=== PATIENT | female | born 1975 | race Caucasian/White ===

== ENCOUNTER 2022-03-30 04:18 | Day surgery (SDC) | payer BC, OTHER ==
[2022-03-25 16:46] VITALS: BMI 41.6
[2022-03-30] MEDS ORDERED: HEPARIN NA (PORCINE) 5,000 UNITS/ML 1ML VIAL ONE (10:04)
[2022-03-30] MEDS ORDERED: HYDROmorphone HCl 2 MG/ML VIAL ONE ×2 (10:23→10:28)
[2022-03-30] MEDS ORDERED: KETOROLAC TROMETHAMINE 30 MG/1 ML VIAL ONE (10:23)
[2022-03-30] MEDS ORDERED: FENTANYL CITRATE/PF 50 MCG/ML VIAL ONE ×5 (10:28→12:56)
[2022-03-30] MEDS ORDERED: SODIUM CHLORIDE 500 ML IV ONE (11:05)
[2022-03-30] MEDS ORDERED: MIDAZOLAM HCL 2 MG/2 ML SINGLE DOSE VIAL ONE ×3 (11:17→12:36)
[2022-03-30] MEDS ORDERED: MIDAZOLAM HCL 2 MG/2 ML SINGLE DOSE VIAL IVPUSH ONE ×6 (11:20→12:57)
[2022-03-30] MEDS ORDERED: KETOROLAC TROMETHAMINE 15 MG/ML VIAL IVPUSH ONE ×2 (12:15→14:15)
[2022-03-30] MEDS ORDERED: HYDROmorphone HCl 2 MG/ML VIAL IVPUSH ONE (13:15)
[2022-03-30] MEDS ORDERED: HYDROmorphone *PCA* 10MG/50ML DISP.SYRIN ONE ×2 (13:39→13:46)
[2022-03-30] MEDS ORDERED: HYDROmorphone *PCA* 10MG/50ML DISP.SYRIN PCA SCH (14:45)
[2022-03-30] MEDS: ONDANSETRON 4 MG/2 ML VIAL IVPUSH PRN ×2 (17:48→22:41)
[2022-03-30] MEDS ORDERED: ONDANSETRON 4 MG/2 ML VIAL ONE (18:07)
[2022-03-30] MEDS: SODIUM CHLORIDE 1,000 ML IV SCH (19:00)
[2022-03-31] MEDS: SODIUM CHLORIDE 1,000 ML IV SCH (01:37)
[2022-03-31] MEDS ORDERED: ACETAMINOPHEN 325 MG TABLET (FP) PO PRN (08:43)
[2022-03-31] MEDS ORDERED: oxyCODONE HCL 5 MG TABLET PO PRN (09:07)
[2022-03-31 09:26] LABS: BASO % 0.1 % (0-2.0); EOS % 0.2 % (0-4.5); HEMATOCRIT 31.9 % (32.4-45.2); HEMOGLOBIN 10.4 GM/dL (10.7-15.3); LYMPH % 9.4 % (8-40); MCH 24.9 pg (25.7-33.7); MCHC 32.6 g/dl (32.0-36.0); MEAN CELL VOLUME 76.4 fl (80-96); MEAN PLT VOLUME 7.9 fl (7.5-11.1); MONO % 5.1 % (3.8-10.2); NEUT % 85.2 % (42.8-82.8); PLATELET COUNT 342 10^3/uL (134-434); RBC 4.17 M/mm3 (3.60-5.2); RDW 16.4 % (11.6-15.6); WHITE BLOOD COUNT 10.2 K/mm3 (4.0-10.0)
[2022-03-31 10:07] LABS: BLOOD UREA NITROGEN 4.4 mg/dL (7-18); CALCIUM 8.4 mg/dL (8.5-10.1)
[2022-03-31 10:10] LABS: CREATININE 0.4 mg/dL (0.55-1.3)
[2022-03-31] MEDS ORDERED: IBUPROFEN 400 MG TABLET (FP) PO PRN (11:51)
[2022-03-31] MEDS ORDERED: BISACODYL 5 MG TABLET.DR (FP) PO PRN (11:51)
[2022-03-31] MEDS ORDERED: FAMOTIDINE 20 MG TABLET PO SCH (12:00)
[2022-03-31] MEDS: ONDANSETRON 4 MG/2 ML VIAL IVPUSH PRN (12:50)
[2022-03-31 15:02] VITALS: BP 117/54; PULSE 103; TEMP 98.1
== END 2022-03-31 18:22 | disposition home or self-care (01) ==
LOC: JASUSAT 04:18 → SUATTDRO 04:18 → J8W 18:54 → JASUSAT 03-31 18:22
PROVIDERS: ATTEND Internal Medicine
PROC: 04LE3DT Occlusion of Right Uterine Artery with Intraluminal Device, Percutaneous Approach (ICD-10-PCS; 2022-03-30)
PROC: 04LF3DU Occlusion of Left Uterine Artery with Intraluminal Device, Percutaneous Approach (ICD-10-PCS; principal; 2022-03-30 10:00)
DX: D25.9 Leiomyoma of uterus, unspecified (principal)
CPT/HCPCS: 36415; 37243; 80048; 81025; 85025; 94760

== ENCOUNTER 2022-04-03 11:44 | Observation (INO) | payer BC, OTHER ==
[2022-04-03 12:01] VITALS: TEMP 99; BMI 41.6
[2022-04-03] MEDS ORDERED: CLINDAMYCIN 600MG PREMIX IVPB 600 MG/50 ML BAG IVPB ONE ×2 (13:26→13:36)
[2022-04-03] MEDS ORDERED: ACETAMINOPHEN 500 MG TABLET (FP) PO ONE (13:27)
[2022-04-03] MEDS ORDERED: DEXAMETHASONE SOD PHOSPHATE 10 MG/1 ML VIAL IVPUSH ONE (13:27)
[2022-04-03] MEDS ORDERED: DEXAMETHASONE SOD PHOSPHATE 10 MG/1 ML VIAL ONE (13:35)
[2022-04-03] MEDS ORDERED: ACETAMINOPHEN INJECTION 100 ML IVPB ONE (13:35)
[2022-04-03] MEDS ORDERED: SODIUM CHLORIDE 0.9% 1000 ML INFUS.BAG IV ONE (13:46)
[2022-04-03 13:59] LABS: HEMATOCRIT 37.6 % (32.4-45.2); HEMOGLOBIN 12.1 GM/dL (10.7-15.3); MCH 24.3 pg (25.7-33.7); MCHC 32.1 g/dl (32.0-36.0); MEAN CELL VOLUME 75.6 fl (80-96); MEAN PLT VOLUME 7.6 fl (7.5-11.1); PLATELET COUNT 489 10^3/uL (134-434); RBC 4.97 M/mm3 (3.60-5.2); RDW 16.4 % (11.6-15.6)
[2022-04-03 14:07] LABS: INR 1.45 (0.83-1.09); PROTHROMBIN TIME (PATIENT) 16.7 SEC (9.7-13.0)
[2022-04-03 14:09] LABS: ACTIVATED PTT 33.2 SECONDS (25.2-36.5)
[2022-04-03 14:22] LABS: CALCIUM 9.4 mg/dL (8.5-10.1)
[2022-04-03 14:23] LABS: BLOOD UREA NITROGEN 7.4 mg/dL (7-18)
[2022-04-03 14:24] LABS: ALBUMIN 3.4 g/dl (3.4-5.0)
[2022-04-03] MEDS ORDERED: morphine SULFATE 4 MG/ML VIAL IVPUSH ONE (14:26)
[2022-04-03] MEDS ORDERED: ONDANSETRON 4 MG/2 ML VIAL IVPUSH ONE (14:26)
[2022-04-03 14:27] LABS: CREATININE 0.6 mg/dL (0.55-1.3)
[2022-04-03] MEDS ORDERED: ONDANSETRON 4 MG/2 ML VIAL ONE (14:28)
[2022-04-03 14:29] LABS: BILIRUBIN,TOTAL 1.1 mg/dL (0.2-1); TOT PROT 8.2 g/dl (6.4-8.2)
[2022-04-03] MEDS ORDERED: KCL 10 MEQ IVPB 10 MEQ/100 ML INFUS.BAG IVPB ONE ×2 (14:35→18:25)
[2022-04-03] MEDS: KCL 10 MEQ IVPB 10 MEQ/100 ML INFUS.BAG IVPB SCH ×2 (15:00→18:15)
[2022-04-03] MEDS ORDERED: AMPICILLIN NA/SULBACTAM NA 3 GM in SODIUM CHLORIDE 100 ML IVPB ONE (17:35)
[2022-04-03] MEDS ORDERED: MAGNESIUM SULF 50% (8.12 MEQ/2 ML-1 GM VIAL) IVPB ONE (20:44)
[2022-04-03] MEDS ORDERED: MAGNESIUM SULFATE IN WATER 2 GM/50 ML IVPB IVPB ONE (20:56)
[2022-04-03 23:36] VITALS: BP 122/78; PULSE 98
== END 2022-04-03 23:35 | disposition short-term general hospital (02) ==
LOC: JER 11:44 → JERBED 17:13
PROVIDERS: ADMIT Internal Medicine; ATTEND Internal Medicine
PROC: 3E03329 Introduction of Other Anti-infective into Peripheral Vein, Percutaneous Approach (ICD-10-PCS; principal; 2022-04-03)
PROC: 3E033GC Introduction of Other Therapeutic Substance into Peripheral Vein, Percutaneous Approach (ICD-10-PCS; 2022-04-03)
PROC: 3E0337Z Introduction of Electrolytic and Water Balance Substance into Peripheral Vein, Percutaneous Approach (ICD-10-PCS; 2022-04-03)
DX: J39.0 Retropharyngeal and parapharyngeal abscess (principal); Z98.890 Other specified postprocedural states; D25.9 Leiomyoma of uterus, unspecified
CPT/HCPCS: 36415; 70491-TC; 80053; 84703; 85027; 85610; 85730; 86850; 86900; 86901; 87040; 99285-25; C9803-CS; G0378; J1100; Q9967; U0003; U0005

== ENCOUNTER 2024-05-30 07:20 | Day surgery (SDC) | payer BC, OTHER ==
[2024-05-22 14:59] VITALS: BMI 37.0
[2024-05-30] MEDS ORDERED: VANCOMYCIN 1,000 MG VIAL (RESTRICTED TO ID ONLY) ONE (08:56)
[2024-05-30] MEDS ORDERED: BUPIVACAINE HCL/PF 2.5 MG/ML - 30 ML VIAL IJ ONE (08:56)
[2024-05-30] MEDS ORDERED: KETOROLAC TROMETHAMINE 60 MG/2 ML VIAL ONE (08:56)
[2024-05-30] MEDS ORDERED: BUPIVACAINE LIPOSOME/PF (EXPAREL) 266 MG/20 ML VIAL ONE (12:39)
[2024-05-30] MEDS ORDERED: ONDANSETRON 4 MG/2 ML VIAL ONE (12:39)
[2024-05-30] MEDS ORDERED: FENTANYL CITRATE/PF 50 MCG/ML VIAL ONE (12:39)
[2024-05-30] MEDS ORDERED: MIDAZOLAM HCL 2 MG/2 ML SINGLE DOSE VIAL ONE ×6 (12:40→15:47)
[2024-05-30] MEDS ORDERED: BUPIVACAINE HCL/PF 0.5% (5MG/ML) 10 ML VIAL ONE (12:40)
[2024-05-30] MEDS ORDERED: DEXMEDETOMIDINE HCL 200 MCG/2 ML IVPB ONE ×2 (13:28→13:31)
[2024-05-30] MEDS ORDERED: ACETAMINOPHEN 325 MG TABLET (FP) PO PRN (14:44)
[2024-05-30] MEDS ORDERED: oxyCODONE HCL 5 MG TABLET PO PRN ×3 (14:44)
[2024-05-30] MEDS ORDERED: ONDANSETRON 4 MG/2 ML VIAL IVPUSH PRN (14:44)
[2024-05-30] MEDS ORDERED: PHENYLEPHRINE HCL 10 MG/1 ML SINGLE DOSE VIAL ONE (15:26)
[2024-05-30] MEDS ORDERED: TRANEXAMIC ACID 1000 MG/10 ML VIAL ONE ×2 (16:09→16:10)
[2024-05-30] MEDS ORDERED: MAG HYDROX/AL HYDROX/SIMETH 30 ML UNIT-DOSE CUP PO PRN (16:39)
[2024-05-30] MEDS ORDERED: MAGNESIUM HYDROX 2400MG/30ML ORAL SUSPENSION 30 ML CUP PO PRN (16:39)
[2024-05-30] MEDS ORDERED: ACETAMINOPHEN INJECTION 100 ML ONE (17:17)
[2024-05-30] MEDS: ACETAMINOPHEN 1000 MG/100 ML BAG IVPB ONE (17:19)
[2024-05-30] MEDS: oxyCODONE HCL 5 MG TABLET PO PRN (19:03)
[2024-05-30] MEDS: LACTATED RINGERS SOLUTION 1,000 ML IV SCH ×3 (19:24)
[2024-05-30] MEDS: ACETAMINOPHEN 1000 MG/100 ML BAG IVPB SCH (19:24)
[2024-05-30] MEDS: ONDANSETRON 4 MG/2 ML VIAL IVPUSH PRN (21:09)
[2024-05-30] MEDS: SENNOSIDES/DOCUSATE COMBO (SENNA PLUS) TABLET (UD) PO SCH (21:09)
[2024-05-30] MEDS: ASPIRIN 81 MG CHEWABLE TABLETS PO SCH (21:09)
[2024-05-30] MEDS: CEFAZOLIN 3 GM in DEXTROSE 5%-WATER - 100 ML IVPB SCH (21:32)
[2024-05-31] MEDS: oxyCODONE HCL 5 MG TABLET PO ONE (00:08)
[2024-05-31 02:00] VITALS: RESP 18
[2024-05-31 08:15] LABS: HEMATOCRIT 32.5 % (32.4-45.2); HEMOGLOBIN 10.3 G/dL (10.7-15.3); MCH 25.8 pg (25.7-33.7); MCHC 31.6 g/dl (32.0-36.0); MEAN CELL VOLUME 81.4 fl (80-96); MEAN PLT VOLUME 8.4 fl (7.5-11.1); PLATELET COUNT 273.4 10^3/uL (134-434); RBC 3.99 10^6/uL (3.60-5.2); RDW 15.4 % (11.6-15.6); WHITE BLOOD COUNT 9.1 10^3/uL (4.0-10.8)
[2024-05-31 08:55] LABS: CALCIUM 8.8 mg/dl (8.5-10.1); CREATININE 0.6 mg/dl (0.6-1.3)
[2024-05-31] MEDS: PANTOPRAZOLE 40 MG TABLET PO SCH (09:31)
[2024-05-31] MEDS: KETOROLAC TROMETHAMINE 30 MG/1 ML VIAL IVPUSH PRN (09:31)
[2024-05-31 10:12] VITALS: BP 117/70; PULSE 88; TEMP 98.6
[2024-05-31] MEDS ORDERED: ACETAMINOPHEN 500 MG TABLET (FP) PO SCH (18:00)
== END 2024-05-31 13:45 | disposition home or self-care (01) ==
LOC: FASU 07:20 → FASUSAT 07:20 → FM/S 18:22 → FASUSAT 05-31 13:45
PROC: 0SRC0J9 Replacement of Right Knee Joint with Synthetic Substitute, Cemented, Open Approach (ICD-10-PCS; principal; 2024-05-30 13:40)
DX: M17.11 Unilateral primary osteoarthritis, right knee (principal)
CPT/HCPCS: 20985; 27447; C1776; S2900; 36415; 73560-TC-RT-FY; 80048; 81025; 82962; 85027; 94760; 97010-GP; 97116-GP; 97162-GP; C1713; C1889; J0131

== ENCOUNTER 2024-06-01 16:25 | Emergency (ER) | payer BC, OTHER ==
[2024-06-01 16:42] VITALS: BP 135/73; PULSE 78; RESP 18; TEMP 99.1; BMI 37.0
== END 2024-06-01 19:00 | disposition home or self-care (01) ==
LOC: FER 16:25
DX: M79.661 Pain in right lower leg (principal); M71.21 Synovial cyst of popliteal space [Baker], right knee
CPT/HCPCS: 93971-TC; 99284-25